=== PATIENT | female | born 1985 | race Caucasian/White ===

== ENCOUNTER 2025-02-03 09:15 | Emergency (ER) | payer BC, MEDICAID, SELFPAY ==
[2025-02-03] VITALS (20 sets, daily range): BP systolic 112–145; BP diastolic 79–105; PULSE 65; TEMP 36.8; O2SAT 96–100; BMI 38.6
--- OUTSIDE RECORDS SUMMARY | 2025-02-03 09:29 | XMS_ITS | Clinical Summary ---
Author Organization [facility] Healthcare Address [address] [place] [address] Care Team Providers Care Band Edger Name Role Phone Unavailable Primary Care Provider Unavailabl e Social History Tobacco Use Types Packs/Day Years Used Date Smoking Tobacco: Never Assessed Comments Unknown Sex and Gender Information Value Date Recorded Sex Assigned at Not on file Legal Sex Female 7:26 PM EDT Gender Identity Not on file Sexual Orientation Not on file Last Filed Vital Signs Vital Sign Reading Time Taken Comments Blood Pressure - - Pulse - - Temperature - - Respiratory Rate - - Oxygen Saturation - - Inhaled Oxygen Concentration - - Weight - - Height 162.6 cm (5' 4 ) 06/24/2022 12:00 PM EST Body Mass Index - - Plan of Treatment Not on file
--- OUTSIDE RECORDS SUMMARY | 2025-02-03 09:29 | XMS_ITS | Clinical Summary ---
Author Organization [facility] Address [address] [place] [address] Care Team Providers Care Rigging Loft Repairer Name Role Phone Unavailable Primary Care Provider Unavailabl e Allergies Active Allergy Reactions Criticality Noted Date Comments Azithromycin Unknown,Vomiting Low 02/26/2012 Ciprocinonide Rash 03/24/2017 Ciprofloxacin Rash,Other: See Comments 05/28/20 15 Codeine Unknown,Vomiting Low 02/26/2012 Guaifenesin Unknown 05/22/2015 Medications cetirizine (ZYRTEC) 10 mg tablet 1 Active DULoxetine (CYMBALTA) 30 mg capsule 1 Active ondansetron orally disintegrating (ZOFRAN ODT) 4 mg disintegrating tablet 1 Active tiZANidine (ZANAFLEX) 4 mg tablet 1 Active traZODone (DESYREL) 50 mg tablet 1 Active ergocalciferol 50,000 unit capsule (VITAMIN D2, DRISDOL)Indications :Vitamin D deficiency Take 1 capsule by mouth one time a week. 12 capsule 1 1 Active Social History Tobacco Use Types Packs/Day Years Used Date Smoking Tobacco: Former Smokeless Tobacco: Never Comments Unknown Sex and Gender Information Value Date Recorded Sex Assigned at Not on file Legal Sex Female 4:28 PM EDT Gender Identity Not on file Sexual Orientation Not on file Last Filed Vital Signs Vital Sign Reading Time Taken Comments Blood Pressure 142/71 05/18/2021 12:43 PM EDT Pulse 79 05/18/2021 12:43 PM EDT Temperature - - Respiratory Rate - - Oxygen Saturation - - Inhaled Oxygen Concentration - - Weight 120.2 kg (265 lb 1.6 oz) 021 12:43 PM EDT Height 162.6 cm (5' 4 ) 05/18/2021 12:4 3 PM EDT Body Mass Index 45.5 05/18/2021 12:43 PM EDT Plan of Treatment Health Maintenance Due Date Last Done Comments Anxiety Screening 2002 Depression Screening 2002 HIV Screening 2002 Hepatitis C Screening 2002 DTaP,Tdap,Td Vaccine (1 - Tdap) 2003 Hepatitis B Vaccine (1 of 3 - 19+ 3-dose series) 03/30 Cervical Cancer Screening 2005 Covid-19 Vaccine (2023- season) 2024 Mammogram Screening 2024 Influenza Vaccine (#1) [address] [place] [place] [address] [place] [address]
--- OUTSIDE RECORDS SUMMARY | 2025-02-03 09:29 | XMS_ITS | Clinical Summary ---
Author Organization [facility] Address [id number] [address] [place] [address] Care Team Providers Care Motor Vehicle Light Assembler Name Role Phone Sue Hernandez COMMUNITY HEALTH CONSULTANT-LABORER AIRPORT MAINTENANCE Primary Care Provider Allergies Active Allergy Reactions Criticality Noted Date Comments Ciprocinonide 03/24/2017 Ciprofloxacin Other (See Comments) 07/30/2015 Codeine 03/24/2017 Guaifenesin 07/30/2015 Azithromycin 03/24/2017 Medications sulfamethoxazol e-trimethoprim (BACTRIM DS) 800-160 mg per tablet Take 1 tablet by mouth 2 (two) times a day. Active nystatin (MYCOSTATIN) powder Apply 1 application topically 4 (four) times a day. 15 g 0 Active ibuprofen (MOTRIN) 800 mg tablet Take 1 tablet (800 mg total) by mouth every 6 (six) hours as needed for pain. 30 tablet 2 Active cyclobenzaprine (FLEXERIL) 10 mg tabletIndicatio ns:Acute pain of right shoulder Take 1 tablet (10 mg total) by mouth every 8 (eight) hours as needed for muscle spasms. 30 tablet 1 2 Active Active Problems No known active problems Immunizations Immunization Administration Dates Next Due Influenza, Injectable, quadr ivalent (PF) 10/26/2018(Deferred: Patient Refused) PPD Test 10/01/2017 Family History Medical History Relation Name Comments Diabetes Father Hyperlipidemia Father Hyperlipidemia Mother Hypertension Mother Relation Name Status Comments Father Mother Social History Tobacco Use Types Packs/Day Years Used Date Smoking Tobacco: Never Smokeless Tobacco: Never Tobacco Cessation:Counseling Given: Not Answered Alcohol Use Standard Drinks/Week Comments No 0 (1 standard drink = 0.6 oz pur e alcohol) Childcare Answer Date Recorded Childcare Unknown 01/06/2019 Employment Answer Date Recorded Employment Unknown 01/06/2019 Hunger Screening Answer Date Recorded Within the past 12 months we worried whether our food would run out before we got money to buy more. Never True 07/11/2022 Within the past 12 months th e food we bought just didn't last and we didn't have money to get more. Never True 07/11/2022 Purpose - Life Answer Date Recorded Purpose and direction in life Unknown Comments No Sex and Gender Information Value Date Recorded Sex Assigned at Not on file Legal Sex Female 11:23 AM EDT Gender Identity Not on file Sexual Orientation Not on file Last Filed Vital Signs Vital Sign Reading Time Taken Comments Blood Pressure 130/86 07/11/2022 5:27 PM EST Pulse 83 07/11/2022 5:27 PM EST Temperature 36.7 C (98 F) 07/11/2022 5:27 PM EST Respiratory Rate 20 07/11/2022 5:27 PM EST Oxygen Saturation 100% 07/11/2022 5:27 PM EST Inhaled Oxygen Concentration - - Weight 113.4 kg (250 lb) 07/11/2022 5:27 PM EST Height 162.6 cm (5' 4 ) 07/11/2022 5:27 PM EST Body Mass Index 42.91 07/11/2022 5:27 PM EST Plan of Treatment Health Maintenance Due Date Last Done Comments DTaP,Tdap and Td Vaccines (6 - Tdap) 1995 04/28/1989, 08/07/1987, 01/12/1985, Additional history exists Depression Screening 1996 Tobacco Screening 1996 Adult BMI Screening 07/11/2023 07/11/2022 Influenza Vaccine 03/28/2025 Medical Devices Not on file Insurance [employer] Care Teams Motor Vehicle Light Assembler Relationship Specialty Start Date End Date Sue Hernandez, COMMUNITY HEALTH CONSULTANT-LABORER AIRPORT MAINTENANCE PCP - General Nurse Practitioner 01/21/20
--- OUTSIDE RECORDS SUMMARY | 2025-02-03 09:29 | XMS_ITS | Clinical Summary ---
Author Organization [facility] Address [address] [place] [address] Care Team Providers Care Haulage Engine Operator Name Role Phone Ramon Gudino DO Primary Care Provider Unavaila ble Allergies Active Allergy Reactions Criticality Noted Date Comments Ciprofloxacin 07/30/2015 Codeine Nausea And Vomiting Low 02/26/2012 Guaifenesin Er 07/30/2015 Azithromycin Nausea And Vomiting Low 02/26/2012 Medications acetaminophen (TYLENOL) 500 MG tablet Take 500 mg by mouth every 6 hours as needed. Active cephALEXin (KEFLEX) 500 MG capsule Take 500 mg by mouth 4 times daily Active albuterol (PROVENTIL) (2.5 MG/3ML) 0.083% nebulizer solution Take 2.5 mg by nebulization every 6 hours as needed for Wheezing Active predniSONE (DELTASONE) 20 MG tablet Take 40 mg by mouth daily Active Active Problems Problem Noted Date Diagnosed Date Suspected Arrhythmia 02/26/2012 Diabetes mellitus during , antepartum 0 02/26/2012 Social History Tobacco Use Types Packs/Day Years Used Date Smoking Tobacco: Every Day Alcohol Use Standard Drinks/Week Comments Not Asked 0 (1 standard drink = 0.6 oz pur e alcohol) Comments No Sex and Gender Information Value Date Recorded Sex Assigned at Not on file Legal Sex Female 12:01 AM EST Gender Identity Not on file Sexual Orientation Not on file Last Filed Vital Signs Vital Sign Reading Time Taken Comments Blood Pressure 142/92 07/30/2015 7:41 PM EST Pulse 89 07/30/2015 7:41 PM EST Temperature 36.8 C (98.3 F) 07/30/2015 7:41 PM EST Respiratory Rate 18 07/30/2015 7:41 PM EST Oxygen Saturation 99% 07/30/2015 8:16 PM EST Inhaled Oxygen Concentration - - Weight 117 kg (258 lb) 02/26/2012 11:14 AM EDT Height - - Body Mass Index - - Plan of Treatment Not on file Care Teams Haulage Engine Operator Relationship Specialty Start Date End Date Ramon Gudino DO PCP - General 07/30/15
--- OUTSIDE RECORDS SUMMARY | 2025-02-03 09:29 | XMS_ITS | Encounter Summary ---
Author Organization [facility] Address [address] [place] [address] Care Team Providers Care Tool And Die Machinist Name Role Phone Unavailable Primary Care Provider Unavailabl e Source Comments In the event this information is protected by the Federal Confidentiality of Alcohol and Drug AbusePatient Records regulations: The Federal rules restrict any use of the information to criminally investigate or prosecute any alcohol or drug abuse patient.[facility] Encounter Details Date Type Department Care Team (Late st Contact Info) Description 05/23/2021 Patient Msg Rheumatology [address] [address] Cindy Crespo, [address] [place] [id number] RE: results Social History Tobacco Use Types Packs/Day Years Used Date Smoking Tobacco: Former Smokeless Tobacco: Never Comments Unknown Sex and Gender Information Value Date Recorded Sex Assigned at Not on file Legal Sex Female 4:28 PM EDT Gender Identity Not on file Sexual Orientation Not on file COVID-19 Exposure Response Date Recorded In the last month, have you been in contact with someone who was confirmed or suspected to have Coronavirus / COVID-19? No / Unsure 05/18/2021 12:35 PM EDT documented as of this encounter Plan of Treatment Not on file documented as of this encounter Visit Diagnoses Not on filedocumented in this encounter
--- NOTE | 2025-02-03 09:37 | ED_ITS ---
HPI HPI - General Adult General Chief complaint: Abdominal Pain Stated complaint: CRAMPING ABDOMINAL PAIN Time Seen by Provider: 02/03/25 09:31 Source: patient Mode of arrival: walk-in Limitations: no limitations History of Present Illness HPI narrative: 39-year-old female presents to the emergency department for abdominal pain and cramping. It started 3 days ago and she has not been around anybody who has been ill. No blood in her stool. She has had some loose stools. She had to leave work because of the symptoms. She has been on Ozempic for a year. Related Data Home Medications ?Medication ?Instructions ?Recorded ?Confirmed semaglutide 1 mg/dose (4 mg/3 mL) 4.5 mg subcut QWEEK 02/03/25 02/03/25 subcutaneous pen injector (Ozempic) Previous Rx's ?Medication ?Instructions ?Recorded dicyclomine 10 mg capsule 10 mg PO QID PRN abdominal p ain 02/03/25 #20 caps ondansetron 4 mg disintegrating 4 mg PO Q6H PRN nausea and 02/03/25 tablet vomiting #20 tabs Allergies Allergy/AdvReac Type Severity Reaction Status Date / Time azithromycin (From Zithromax) AdvReac Mild Vomiting Verified 02/03/25 09:20 ciprofloxacin (From Cipro) AdvReac Mild Rash Verified 02/03/25 09:20 codeine AdvReac Mild Vomiting Verified 02/03/25 09:20 guaifenesin (From Mucinex) AdvReac Mild Anaphylaxis Verified 02/03/25 09:20 Opioid HPI Opioid Management Most Recent Opioid Data: Last Pain Scale 8 Today, 09:30 Review of Systems ROS Narrative A ten point review of systems is negative except as noted above. PFSH PFSH Social History Little interest or pleasure in doing things: not at all Feeling down, depressed, or hopeless: not at all Exam Narrative Exam Narrative: Nurses note and vital signs reviewed and patient is not hypoxic. General: The patient appears uncomfortable and in no apparent distress. Skin: Warm, dry, no pallor noted. There is no rash noted. Head: Normocephalic, atraumatic Eye: Normal conjunctiva, no drainage Ears, Nose, Mouth, and Throat: oral mucosa is moist. Nares patent. Cardiovascular: Regular Rate and Rhythm Respiratory: Patient is in no distress, no accessory muscle use, lungs are clear to auscultation, no wheezing, rales or rhonchi Back: non-tender GI: Soft and diffusely tender Musculoskeletal: The patient has no evidence of calf tenderness, no pitting edema, symmetrical pulses noted bilaterally Neurological: A&O, normal speech Psychiatric: Cooperative Constitutional Vital Signs, click to edit/add: Last Vital Signs Temp 98.2 F 02/03/25 09:20 Pulse 65 02/03/25 09:20 Resp 18 02/03/25 09:20 BP 133/83 02/03/25 10:30 Pulse Ox 96 02/03/25 10:30 O2 Del Method Room Air 02/03/25 09:20 Course Vital Signs Vital signs: Vital Signs Temperature 98.2 F 02/03/25 09:20 Pulse Rate 65 02/03/25 09:20 Respiratory Rate 18 02/03/25 09:20 Blood Pressure 145/105 H 02/03/25 09:20 Pulse Oximetry 96 02/03/25 09:20 Oxygen Delivery Method Room Air 02/03/25 09:20 Temperature 98.2 F 02/03/25 09:20 Pulse Rate 65 02/03/25 09:20 Respiratory Rate 18 02/03/25 09:20 Blood Pressure 133/83 02/03/25 10:30 Pulse Oximetry 96 02/03/25 10:30 Oxygen Delivery Method Room Air 02/03/25 09:20 Medical Decision Making MDM Narrative Medical decision making narrative: Her workup including CAT scan is negative. She may have viral gastroenteritis but the possibility that her symptoms are due to the Ozempic was discussed. She will follow-up with her doctor if symptoms do not improve. Treatment diagnosis and follow-up were discussed with the patient. Differential Diagnosis Differential Diagnosis: Gastroenteritis, medication side effect, dehydration Lab Data Lab results reviewed: Yes I reviewed the patient's lab results Labs: Lab Results 02/03/25 02/03/25 Range/Units 09:24 09:35 WBC 6.7 (4.0-11.0) 10^3/uL RBC 5.25 (4.20-5.40) 10^6/uL Hgb 15.4 (12.0-16.0) g/dL Hct 44.0 (36.0-48.0) % MCV 83.8 (81.0-99.0) fL MCH 29.3 (26.7-34.0) pg MCHC 35.0 (29.9-35.2) g/dL RDW 12.5 (11.0-15.0) % Plt Count 370 (150-450) 10^3/uL MPV 9.3 L (9.5-13.5) fL Neut % (Auto) 65.2 (43.0-75.0) % Lymph % (Auto) 22.2 (20.5-60.0) % [place] % (Auto) 8.2 (1.7-12.0) % Eos % (Auto) 3.1 (0.9-7.0) % Baso % (Auto) 1.0 (0.2-2.0) % Neut # (Auto) 4.4 (1.4-6.5) 10^3/uL Lymph # (Auto) 1.5 (1.2-3.8) 10^3/uL [place] # (Auto) 0.6 (0.3-0.8) 10^3/uL Eos # (Auto) 0.2 (0.0-0.7) 10^3/uL Baso # (Auto) 0.1 (0.0-0.1) 10^3/uL Abs Immat Gran (auto) 0.02 (0.00-0.03) 10^3/uL Imm/Tot Granulo (auto) 0.3 (0.0-0.5) % Sodium 142 (136-145) mmol/L Potassium 4.0 (3.5-5.1) mmol/L Chloride 105 (98-107) mmol/L Carbon Dioxide 25.9 (21.0-32.0) mmol/L Anion Gap 15.1 BUN 10.0 (7.0-18.0) mg/dL Creatinine 0.52 L (0.55-1.02) mg/dL Est GFR ( Amer) >60 (>=60 mL/min/1.73m^2) Est GFR (Non-Af Amer) >60 (>=60 mL/min/1.73m^2) BUN/Creatinine Ratio 19.2 Glucose 92 (74-106) mg/dL Calcium 9.3 (8.5-10.1) mg/dL Total Bilirubin 0.7 (0.2-1.0) mg/dL Direct Bilirubin 0.1 (0.0-0.2) mg/dL AST 14 L (15-37) U/L ALT 25 (14-59) U/L Alkaline Phosphatase 81 (46-116) U/L Total Protein 7.7 (6.4-8.2) g/dL Albumin 4.0 (3.4-5.0) g/dL Globulin 3.7 g/dL Albumin/Globulin Ratio 1.1 Amylase 95 (25-115) U/L Lipase 123.0 H (16.0-77.0) U/L Urine Color Yellow (YELLOW) Urine Clarity Clear (CLEAR) Urine pH 6.0 (5.0-9.0) Ur Specific Franklin 1.025 (1.005-1.025) Urine Protein Negative (NEG/TRACE) mg/dL Urine Glucose (UA) Negative (NEGATIVE) mg/dL Urine Ketones Negative (NEGATIVE) mg/dL Urine Occult Blood Negative (NEGATIVE) Urine Nitrite Negative (NEGATIVE) Urine Bilirubin Negative (NEGATIVE) Urine Urobilinogen 0.2 (0.2-1.0) EU/dL Ur Leukocyte Esterase Negative (NEGATIVE) Urine RBC 0-2 (0-2) #/HPF Urine WBC 2-5 A (NONE SEEN) #/HPF Ur Squamous Epith Cells Moderate A (NONE/RARE) #/LPF Urine Crystals None seen (None Seen) #/HPF Urine Bacteria Small A (NONE SEEN) #/HPF Urine Casts None seen (NONE SEEN) #/LPF Urine Mucus Small A (NONE SEEN) Ur Culture Indicated? Yes[place] [place] scan - abdomen: Radiologist's impression: ITS Impressions Abdomen/Pelvis CT 02/03/25 10:46 IMPRESSION: NO BOWEL OR URINARY TRACT OBSTRUCTION. 2.6 CM RIGHT OVARIAN CYST. TRACE AMOUNT OF FREE PELVIC FLUID THAT MAY BE PHYSIOLOGIC. Impression dictated by: Elvira Kaye M.D. 02/03/2025 11:32 AM Dictation Location: [place] [address] Electronically authenticated by: [id number] Y Date: 02/03/2025 11:32 Discharge Plan Discharge Chief Complaint: Abdominal Pain Clinical Impression: Abdominal pain, Diarrhea Patient Disposition: Home, Self-Care Time of Disposition Decision: 12:12 Condition: Good Mode of Transportation: Private Vehicle Prescriptions / Home Meds: New ondansetron 4 mg tablet,disintegrating 4 mg PO Q6H PRN (Reason: nausea and vomiting) Qty: 20 0RF dicyclomine 10 mg capsule 10 mg PO QID PRN (Reason: abdominal pain) Qty: 20 0RF No Action Ozempic 1 mg/dose (4 mg/3 mL) pen injector 4.5 mg subcut QWEEK Print Language: Greenlandic Instructions: Acute Diarrhea (ED), Abdominal Pain (ED) Referrals: Sue Hernandez NP [Primary Care Provider, Family Practice] - 1 week
[2025-02-03] MEDS: 0.9 % SODIUM CHLORIDE 1,000 ML 1000 ML IV (09:44)
[2025-02-03] MEDS: DICYCLOMINE HCL 20 MG/2 ML VIAL IM (09:47)
[2025-02-03 09:50] LABS: Hematocrit 44.0 % (36.0-48.0); Hemoglobin 15.4 g/dL (12.0-16.0); Immature Granulocytes Abs Auto 0.02 10^3/uL (0.00-0.03); Immature Granulocytes Pct Auto 0.3 % (0.0-0.5); Lymphocytes Absolute Auto 1.5 10^3/uL (1.2-3.8); Mean Corpuscular HGB Conc 35.0 g/dL (29.9-35.2); Mean Corpuscular Hemoglobin 29.3 pg (26.7-34.0); Mean Corpuscular Volume 83.8 fL (81.0-99.0); Platelet Count 370 10^3/uL (150-450); Red Blood Count 5.25 10^6/uL (4.20-5.40); White Blood Count 6.7 10^3/uL (4.0-11.0)
[2025-02-03 09:58] LABS: Glucose Urine UA NEGATIVE (NEGATIVE)
[2025-02-03 10:07] LABS: Alanine Aminotransferase 25 U/L (14-59); Albumin Globulin Ratio 1.1; Albumin Level 4.0 g/dL (3.4-5.0); Alkaline Phosphatase 81 U/L (46-116); Amylase 95 U/L (25-115); Anion Gap 15.1; Aspartate Amino Transferase 14 U/L (15-37); Blood Urea Nitrogen 10.0 mg/dL (7.0-18.0); Calcium 9.3 mg/dL (8.5-10.1); Carbon Dioxide 25.9 mmol/L (21.0-32.0); Chloride 105 mmol/L (98-107); Estimated GFR (African America >60 (>=60 mL/min/1.73m^2); Estimated GFR (Non-African Ame >60 (>=60 mL/min/1.73m^2); Globulin 3.7 g/dL; Glucose 92 mg/dL (74-106); Lipase 123.0 U/L (16.0-77.0); Potassium 4.0 mmol/L (3.5-5.1); Sodium 142 mmol/L (136-145); Total Protein 7.7 g/dL (6.4-8.2)
[2025-02-03 10:11] LABS: Cast Seen? NONE SEEN #/LPF (NONE SEEN); Crystals Seen? None Seen #/HPF (None Seen)
[2025-02-03 10:13] LABS: Urine Culture Indicated YES-FRMC
--- NOTE | 2025-02-03 10:46 | CT_ITS ---
The [address] [address] Patient Name: LAUREN RANDLE MRN: [id number] date: 1985 Sex: F Assigned Patient Location: ER Current Patient Location: ER Accession/Order Number: [id number] Exam Date: 02/03/2025 11:25 Report Date: 02/03/2025 11:32 At the request of: AUSTIN FUNK MD Procedure: CT abdomen pelvis w con CT ABDOMEN AND PELVIS WITH CONTRAST COMPARISON: 01/26/2020 CLINICAL DATA: Abdominal pain and cramping for the past few days and intermittent nausea. Spiral images were obtained through the abdomen pelvis following 100 mL of Isovue-300. This CT exam was performed using one or more following dose reduction techniques: Automated exposure control, adjustment of the mA and/or kV according to patient size, or use of iterative reconstruction technique. Limited cuts through the lung bases show no contributory findings. No calcified gallstones are identified. No intrahepatic masses are seen. The spleen, pancreas and adrenal glands show no acute findings. There are symmetric renal nephrograms, without hydronephrosis. The abdominal aorta is normal caliber. Small retroperitoneal and mesenteric lymph nodes are present. No ascites is seen. There is a small amount of air and fluid within the stomach. There are normal caliber small bowel loops. Air and mild stool are noted along the colon. There are some segments of left colon which are under distended and have apparent wall thickening. There are mild degenerative changes at the spine, predominantly at the lower facets. There is also sclerosis the SI joints on both sides. Images through the pelvis show no distended small bowel. No appendiceal inflammation is seen. There is stool at the distal colon. No diverticular disease is noted. The uterus is surgically absent. There is a 2.6 cm right adnexal cyst. No urinary bladder abnormalities are seen. There is minimal free fluid at the right posterior cul-de-sac, possibly physiologic. CT/CT abdomen pelvis w con IMPRESSION: NO BOWEL OR URINARY TRACT OBSTRUCTION. 2.6 CM RIGHT OVARIAN CYST. TRACE AMOUNT OF FREE PELVIC FLUID THAT MAY BE PHYSIOLOGIC. Impression dictated by: Elvira Kaye M.D. 02/03/2025 11:32 AM Dictation Location: [place] [address] Electronically authenticated by: [id number] Y Date: 02/03/2025 11:32
== END 2025-02-03 12:24 | disposition home or self-care (01) ==
PROVIDERS: Emergency Provider Emergency Medicine; PCP Nurse Practitioner
DX: R10.84 Generalized abdominal pain (principal); R19.7 Diarrhea, unspecified; N83.291 Other ovarian cyst, right side
CPT/HCPCS: 36415; 74177; 80048; 80076; 81001; 82150; 83690; 85025; 87045; 87046; 87086; 87427; 87493; 96361; 96372; 96374; 99285; J0500; J2405; Q9967